=== PATIENT | female | born 1980 | race Two or more races ===

== ENCOUNTER 2017-04-01 19:48 | Emergency (ER) | payer MEDICAID ==
[~2017-04-01] VITALS: Ht 165.1 cm; Wt 72.6 kg
[~2017-04-01 19:48] MED LIST: VICODIN 5-5001 EACH PO; XANAX1 MG PO; [UNRECOGNIZED DRUG - REMARK]
[2017-04-01] MEDS ORDERED: Morphine Sulfate 4mg/ml Inj IVP ONE ×2 (20:15→23:00)
[2017-04-01] MEDS ORDERED: LORazepam Inj 2mg/ml 1ml IV ONE (20:15)
[2017-04-01] MEDS ORDERED: DiphenhydrAMINE 50mg/ml Inj IVP ONE (20:15)
[2017-04-01 20:29] LABS: ANION GAP 8 mmol/L (5-15); BLOOD UREA NITROGEN 14 mg/dL (7-18); CALCIUM 9.4 MG/DL (8.5-10.1); CARBON DIOXIDE 28 MMOL/L (21-32); CHLORIDE 103 MMOL/L (98-107); CREATININE 0.8 MG/DL (0.55-1.30); POTASSIUM 3.3 MMOL/L (3.5-5.1); SODIUM 139 MMOL/L (136-145)
[2017-04-01 20:33] LABS: ALANINE AMINOTRANSFERASE 38 U/L (12-78); ALBUMIN 3.8 G/DL (3.4-5.0); ALBUMIN/GLOBULIN RATIO 0.8 (1.0-2.7); ALKALINE PHOSPHATASE 85 U/L (46-116); ASPARTATE AMINO TRANSFERASE 25 U/L (15-37); BILIRUBIN,TOTAL 0.4 MG/DL (0.2-1.0)
[2017-04-01 20:36] LABS: BASOPHILS % (AUTO) 0.9 % (0.0-2.0); EOSINOPHILS % (AUTO) 0.9 % (0.0-3.0); HEMATOCRIT 44.9 % (37.0-47.0); HEMOGLOBIN 14.5 G/DL (12.0-16.0); LYMPHOCYTES % (AUTO) 31.9 % (20.0-45.0); MEAN CORPUSCULAR VOLUME 81 FL (80-99); MONOCYTES % (AUTO) 8.5 % (1.0-10.0); NEUTROPHILS % (AUTO) 57.8 % (45.0-75.0); PLATELET COUNT 280 K/UL (150-450); RED BLOOD COUNT 5.54 M/UL (4.20-5.40); RED CELL DISTRIBUTION WIDTH 12.6 % (11.6-14.8); WHITE BLOOD COUNT 8.8 K/UL (4.8-10.8)
--- NOTE | 2017-04-01 21:14 | Emergency Room Report ---
History of Present Illness General Chief Complaint: Seizure Source: Family Member (ERUM CHAVES M.D.) Present Illness HPI 36-year-old female presents to ED for evaluation. Family states patient had a witnessed seizure at home. Family states seizure lasts for several seconds. Upon arrival patient is crying. Complaining of headache. States she has history of migraines which can sometimes cause seizures. Patient states she takes sumatriptan for migraines. Also takes Xanax for anxiety. Pain is throbbing, 10 out of 10, nonradiating. Denies nausea or vomiting. Denies neck stiffness. Denies fevers chills. No other aggravating relieving factors. Denies any other associated symptoms (ERUM CHAVES M.D.) Allergies: Coded Allergies: No Known Allergies (Unverified , 02/05/12) Patient History Past Medical History: migraines Past Surgical History: none Pertinent Family History: none Social History: Denies: smoking, alcohol use, drug use Last Menstrual Period: unk Now: No Immunizations: UTD Reviewed Nursing Documentation: PMH: Agreed, PSxH: Agreed (ERUM CHAVES M.D.) Review of Systems All Other Systems: negative except mentioned in HPI (ERUM CHAVES M.D.) Physical Exam Vital Signs Date Time Temp Pulse Resp B/P (MAP) Pulse Ox O2 Delivery O2 Flow Rate FiO2 04/01/17 19:57 97.8 104 17 125/88 100 Room Air 97.9 Sp02 EP Interpretation: reviewed, normal General Appearance: alert, mild distress Head: normocephalic Eyes: bilateral eye normal inspection, bilateral eye PERRL ENT: hearing grossly normal, normal pharynx, no angioedema, normal voice Neck: full range of motion, supple, no meningismus, supple/symm/no masses Respiratory: chest non-tender, lungs clear, normal breath sounds, speaking full sentences Cardiovascular #1: regular rate, rhythm, no edema Gastrointestinal: normal bowel sounds, non tender, soft, non-distended, no guarding, no rebound Rectal: deferred Genitourinary: no CVA tenderness Musculoskeletal: normal inspection Neurologic: alert, oriented x3, responsive, motor strength/tone normal, sensory intact, speech normal Psychiatric: anxious Skin: normal inspection Lymphatic: normal inspection (ERUM CHAVES M.D.) Medical Decision Making Diagnostic Impression: Primary Impression: Migraine Qualified Codes: G43.809 - Other migraine, not intractable, without status migrainosus Additional Impressions: Seizure disorder Complex migraine Labs Test 04/01/17 19:00 White Blood Count 8.8 K/UL (4.8-10.8) Red Blood Count 5.54 M/UL (4.20-5.40) Hemoglobin 14.5 G/DL (12.0-16.0) Hematocrit 44.9 % (37.0-47.0) Mean Corpuscular Volume 81 FL (80-99) Mean Corpuscular Hemoglobin 26.1 PG (27.0-31.0) Mean Corpuscular Hemoglobin Concent 32.2 G/DL (32.0-36.0) Red Cell Distribution Width 12.6 % (11.6-14.8) Platelet Count 280 K/UL (150-450) Mean Platelet Volume 7.4 FL (6.5-10.1) Neutrophils (%) (Auto) 57.8 % (45.0-75.0) Lymphocytes (%) (Auto) 31.9 % (20.0-45.0) Monocytes (%) (Auto) 8.5 % (1.0-10.0) Eosinophils (%) (Auto) 0.9 % (0.0-3.0) Basophils (%) (Auto) 0.9 % (0.0-2.0) Sodium Level 139 MMOL/L (136-145) Potassium Level 3.3 MMOL/L (3.5-5.1) Chloride Level 103 MMOL/L (98-107) Carbon Dioxide Level 28 MMOL/L (21-32) Anion Gap 8 mmol/L (5-15) Blood Urea Nitrogen 14 mg/dL (7-18) Creatinine 0.8 MG/DL (0.55-1.30) Estimat Glomerular Filtration Rate > 60 mL/min (>60) Glucose Level 98 MG/DL (74-106) Calcium Level 9.4 MG/DL (8.5-10.1) Total Bilirubin 0.4 MG/DL (0.2-1.0) Aspartate Amino Transf (AST/SGOT) 25 U/L (15-37) Alanine Aminotransferase (ALT/SGPT) 38 U/L (12-78) Alkaline Phosphatase 85 U/L (46-116) Total Protein 8.3 G/DL (6.4-8.2) Albumin 3.8 G/DL (3.4-5.0) Globulin 4.5 g/dL Albumin/Globulin Ratio 0.8 (1.0-2.7) Lipase 176 U/L (73-393) (ERUM CHAVES M.D.) ER Course Please see the above H&P. The patient is improved dramatically. She still feels ill. She recently vomited. His nonfocal neurologic exam at this time. Compazine is ordered. In addition, potassium slightly low. Oral potassium will be given also. Patient complaint left facial numbness. According to the family and the patient this is when the symptoms of her migraines and she frequently has. The patient was observed and complaining about dizziness and return her pain. Morphine is repeated and a CAT scan of the head is ordered. CT no bleed or mass. Improved with treatment. Stable for outpatient observation and treatment. (Selwyn Long M.D.) CT/MRI/US Diagnostic Results CT/MRI/US Diagnostic Results : Imaging Test Ordered: head Impression no mass, bleed. Sinuses without disease (Selwyn Long M.D.) Last Vital Signs Date Time Temp Pulse Resp B/P (MAP) Pulse Ox O2 Delivery O2 Flow Rate FiO2 04/01/17 20:06 104 17 Room Air 04/01/17 19:57 97.8 125/88 100 97.9 (ERUM CHAVES M.D.) Last Vital Signs Date Time Temp Pulse Resp B/P (MAP) Pulse Ox O2 Delivery O2 Flow Rate FiO2 04/02/17 02:20 97.9 83 17 110/77 100 Room Air 97.9 Status: improved (Selwyn Long M.D.) Disposition: HOME, SELF-CARE Condition: Improved Scripts Ondansetron Odt* (ZOFRAN ODT*) 4 Mg Tab.rapdis 4 MG ORAL Q8H Y for Nausea & Vomiting, #6 TAB 0 Refills Prov: Selwyn Long M.D. 04/02/17 Ibuprofen* (MOTRIN*) 600 Mg Tablet 600 MG ORAL Q6H Y for For Pain, #20 TAB Prov: Selwyn Long M.D. 04/02/17 ERUM CHAVES M.D. Apr 01, 2017 21:14 Selwyn Long M.D. Apr 01, 2017 21:53
[2017-04-02 01:36] VITALS: BP 110/77
[2017-04-02] MEDS ORDERED: IBUPROFEN600 MG ORAL (01:58)
[2017-04-02] MEDS ORDERED: ZOFRAN ODT4 MG ORAL (01:58)
[2017-04-02 02:20] VITALS: BP 110/77
--- NOTE | 2017-04-02 07:59 | Diagnostic Imaging Report ---
Indication: Headache Technique: Continuous helical CT scanning of the head was performed utilizing automated exposure control without intravenous contrast material. Axial and coronal reconstructions were obtained. Comparison: 02/05/2012 CT dose: Total DLP 1369.05 mGycm; CTDI vol 70.38 mGy Findings: There is no acute intracranial hemorrhage, mass effect or cortical edema. The ventricles, cisterns and sulci are normal. Mastoid air cells are clear. Incidental note is made of pneumatization of the petrous apices. Mild mucosal thickening noted in some posterior ethmoid air cells. Remainder the visualized paranasal sinuses clear. IMPRESSION: No evidence of acute intracranial hemorrhage, mass effect or cortical edema. MRI may be obtained for more sensitive evaluation as clinically indicated. Mild paranasal sinus disease. This corresponds with the statrad preliminary report. The CT scanner at [facility] is accredited by the [employer] and the scans are performed using protocols designed to limit radiation exposure to as low as reasonably achievable to attain images of sufficient resolution adequate for diagnostic evaluation.
== END 2017-04-02 02:21 | disposition home or self-care (01) ==
LOC: EMR 20:00
DX: G43.809 Other migraine, not intractable, without status migrainosus (principal); G40.909 Epilepsy, unspecified, not intractable, without status epilepticus; F41.9 Anxiety disorder, unspecified; Z79.899 Other long term (current) drug therapy
CPT/HCPCS: 36415; 70450; 80053; 83690; 85025; 96361; 96374; 96375; 96376; 99284; J0780; J1200; J2270; J8499